=== PATIENT | male | born 1955 | race Native Hawaiian/Other Pacific Islander ===

== ENCOUNTER 2019-05-31 07:55 | Emergency (ER) | payer OTHER ==
[2019-05-31 08:14] VITALS: BP 155/81
[2019-05-31] MEDS ORDERED: HYDROcodone/ACETAMINOPHEN 5-325 MG TAB PO ONE (09:15)
[2019-05-31] MEDS ORDERED: IBUPROFEN 800 MG TAB PO ONE (09:15)
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
== END 2019-05-31 10:57 | disposition home or self-care (01) ==
LOC: ED 07:55
DX: S40.012A Contusion of left shoulder, initial encounter (principal); V49.49XA Driver injured in collision with other motor vehicles in traffic accident, initial encounter; Y93.89 Activity, other specified; Y92.410 Unspecified street and highway as the place of occurrence of the external cause; Y99.8 Other external cause status